=== PATIENT | male | born 1945 | race Caucasian/White ===

== ENCOUNTER → 2020-03-15 13:12 | Outpatient (BNVA) | payer BC, SELFPAY | PROVIDERS: PCP Internal Medicine; Visit Provider Hospitalist | DX: Z76.89 Persons encountering health services in other specified circumstances (principal) ==

== ENCOUNTER 2020-09-06 14:16 | Outpatient (REF) | payer BC, SELFPAY ==
--- NOTE | ~2020-09-06 | XR_ITS ---
EXAMINATION: XR CHEST CLINICAL INFORMATION: COPD. COMPARISON: None TECHNIQUE: 2 views of the chest were obtained. FINDINGS: Subtle nodular opacities overlie the peripheral midlung poole bilaterally, right greater than left. A subtle nodule overlies the left upper lobe measuring 1.8 cm. There is generalized hyperinflation. The heart and mediastinal structures are unremarkable. XR/XR chest 2V IMPRESSION: Generalized hyperinflation consistent with the patient's history of COPD. No acute cardiopulmonary process. Subtle nodularity bilaterally may be associated with the overlying ribs. Given there is no previous study available for comparison, a CT scan of the chest is recommended to rule out nodule/malignancy.
== END 2020-09-06 14:17 | disposition home or self-care (01) ==
LOC: HO.XRAY 14:16
PROVIDERS: PCP Internal Medicine; Visit Provider Hospitalist
DX: J44.9 Chronic obstructive pulmonary disease, unspecified (principal)
CPT/HCPCS: 71046

== ENCOUNTER → 2020-09-18 09:52 | Outpatient (BNVA) | payer BC, SELFPAY | PROVIDERS: PCP Internal Medicine; Visit Provider Hospitalist ==

== ENCOUNTER 2020-10-11 09:35 | Outpatient (REF) | payer MEDICARE, SELFPAY ==
--- NOTE | ~2020-10-11 | CT_ITS ---
EXAMINATION: CT CHEST WITHOUT CONTRAST CLINICAL INFORMATION: Other nonspecific abnormal finding of lung field. COMPARISON: Previous chest x-ray most recent August 2020. TECHNIQUE: Multidetector volumetric CT imaging of the chest was done. Axial MIP volume rendering provided. Sagittal and coronal reformatted images were obtained. This CT examination was performed using dose optimization techniques as appropriate, variously including the following: *Automated exposure control *Adjustment of mA and/or kV according to patient size (this includes techniques or standardized protocols for targeted exams where dose is matched to indication/reason for exam; i.e. extremities or head) *Use of iterative reconstruction technique DLP: 128 mGy-cm FINDINGS: LUNGS: There are bilateral pleural plaques. Some appear partially calcified. There is a 2 x 3.6 cm oval-shaped peripheral or subpleural lesion in the right lower lobe. This is adjacent to the pleural surface and there is pleural calcification. This has a whorled central bronchovascular pattern and probably represents round atelectasis, for example axial image 42 series 4. There is a 2 mm right upper lobe nodule axial image 14 series 4. There is a 2 mm left upper lobe nodule axial image 22 series 4. MEDIASTINUM: There is coronary artery calcification. The mediastinum is otherwise normal. PLEURA: There are bilateral partially calcified pleural plaques. There is focal pleural calcification and pleural thickening adjacent to the posterior medial right lower lobe. There is no pleural effusion. AXILLA: No lymphadenopathy. UPPER ABDOMEN: Unremarkable. OSSEOUS STRUCTURES: There are degenerative changes of the spine. 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 2 x 3.6 cm posterior medial right lower lobe nodule probably representing round atelectasis. Mild coronary artery calcification.
== END 2020-10-11 09:36 | disposition home or self-care (01) ==
LOC: HO.CT 09:35
PROVIDERS: Visit Provider Hospitalist
DX: R91.8 Other nonspecific abnormal finding of lung field (principal); R93.89 Abnormal findings on diagnostic imaging of other specified body structures
CPT/HCPCS: 71250

== ENCOUNTER → 2020-10-16 10:09 | Outpatient (BNVA) | payer MEDICARE, SELFPAY | PROVIDERS: PCP Internal Medicine; Visit Provider Hospitalist | DX: R91.8 Other nonspecific abnormal finding of lung field (principal); R93.89 Abnormal findings on diagnostic imaging of other specified body structures; G47.33 Obstructive sleep apnea (adult) (pediatric); J92.0 Pleural plaque with presence of asbestos; F51.01 Primary insomnia; J41.0 Simple chronic bronchitis; Z99.89 Dependence on other enabling machines and devices; Z79.899 Other long term (current) drug therapy | CPT/HCPCS: 99212 ==

== ENCOUNTER 2020-12-19 09:09 | Outpatient (REF) | payer MEDICARE, SELFPAY ==
--- NOTE | ~2020-12-19 | CT_ITS ---
EXAMINATION: CT CHEST WITHOUT CONTRAST CLINICAL INFORMATION: Followup right lower lobe nodule. COMPARISON: None TECHNIQUE: Multidetector volumetric CT imaging of the chest was done. Axial MIP volume rendering provided. Sagittal and coronal reformatted images were obtained. This CT examination was performed using dose optimization techniques as appropriate, variously including the following: *Automated exposure control *Adjustment of mA and/or kV according to patient size (this includes techniques or standardized protocols for targeted exams where dose is matched to indication/reason for exam; i.e. 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 LUNGS: The lungs are hyperinflated without acute pneumonic consolidation. There is a right lower lobe pleural-based mass with an adjacent dense calcified pleural plaque. The mass measures 3.9 x 2.3 cm on axial image 434/7. Previously it measured 3.6 x 2.0 cm. No additional nodules or mass seen. There is mild scarring and atelectatic changes in the right lower lobe adjacent to this pleural-based nodule. There are small 9 mm and 1.2 cm nodules along the right hemidiaphragm which are stable. They are best visualized on axial image 507/7. MEDIASTINUM: The thyroid lobes are symmetrical and normal. The central trachea and the bronchi widely patent. The heart size and the great vessels are normal caliber. There are coronary artery calcifications. There is no pericardial effusion. No abnormal size mediastinal or hilar lymph nodes seen. PLEURA: There are bilateral calcified pleural plaques, similar to previous study and right diaphragmatic-based 2 nodules. One of these nodules is partially calcified. There is minimal right posterior pleural thickening. AXILLA: No lymphadenopathy. UPPER ABDOMEN: Visualized liver, spleen, pancreas, and bilateral adrenal glands are unremarkable. OSSEOUS STRUCTURES: There is no lytic or sclerotic process. There is mild ventral spondylosis mid thoracic and upper lumbar spine. CT/CT chest wo con IMPRESSION: Minimal increase in the right lower lobe pleural-based mass. There are bilateral diaphragmatic pleural calcifications and nodular focal thickening along the right diaphragm, stable. Mild right posterior pleural thickening is stable, as well. Mild coronary artery calcifications are stable, as well. The lungs are hyperinflated.
== END 2020-12-19 09:10 | disposition home or self-care (01) ==
LOC: HO.CT 09:09
PROVIDERS: Visit Provider Hospitalist
DX: R91.8 Other nonspecific abnormal finding of lung field (principal); J92.0 Pleural plaque with presence of asbestos
CPT/HCPCS: 71250

== ENCOUNTER → 2021-01-16 10:26 | Outpatient (BNVA) | payer MEDICARE, SELFPAY | PROVIDERS: PCP Internal Medicine; Visit Provider Hospitalist | DX: R91.8 Other nonspecific abnormal finding of lung field (principal); G47.33 Obstructive sleep apnea (adult) (pediatric); J92.0 Pleural plaque with presence of asbestos; J41.0 Simple chronic bronchitis; F51.01 Primary insomnia; Z99.89 Dependence on other enabling machines and devices | CPT/HCPCS: 99212 ==

== ENCOUNTER → 2021-01-31 09:24 | Outpatient (BNVA) | payer MEDICARE, SELFPAY | PROVIDERS: PCP Internal Medicine; Visit Provider Surgery | DX: R91.8 Other nonspecific abnormal finding of lung field (principal); J92.0 Pleural plaque with presence of asbestos; Z79.899 Other long term (current) drug therapy | CPT/HCPCS: 99212 ==

== ENCOUNTER 2021-02-11 15:50 | Outpatient (REF) | payer MEDICARE, SELFPAY ==
--- NOTE | 2021-02-11 17:18 | PFT_ITS ---
FLOWS: 1. FEV1 88% of predicted at 3.16 L. 2. FVC 95% of predicted at 4.70 L. 3. FEV1 to FVC ratio of 0.611. 4. Positive bronchodilator response. LUNG VOLUMES: 1. Total lung capacity 99% of predicted at 7.82 L. 2. Residual volume 116% of predicted at 3.25 L. 3. Slow vital capacity 90% of predicted at 4.57 L. 4. Expiratory reserve volume 111% of predicted at 1.66 L. Diffusion capacity is moderately decreased, diffusion capacity adjust to being mildly decreased after correction for alveolar ventilation. IMPRESSION: [id number] obstructive ventilatory defect with positive bronchodilator response. Decreased diffusion capacity suggests emphysema. MD OSCAR Bhatia/MODL / [id number]
== END 2021-02-11 15:51 | disposition home or self-care (01) ==
LOC: HO.RESP 15:50
PROVIDERS: PCP Internal Medicine; Visit Provider Surgery
DX: R91.8 Other nonspecific abnormal finding of lung field (principal)
CPT/HCPCS: 94060; 94727; 94729

== ENCOUNTER 2021-03-25 08:56 | Outpatient (REF) | payer MEDICARE, SELFPAY ==
--- NOTE | ~2021-03-25 | PE_ITS ---
EXAMINATION: Fluorine-18 FDG PET/CT Scan CLINICAL INDICATION: Initial treatment management. Right lower lobe mass. PROCEDURE: 74 minutes following the intravenous administration of 16.2 mCi of fluorine 18 FDG, images from the base of the skull to the mid thighs were obtained using a combined PET/CT scanner with CT scan based attenuation correction. No oral contrast was administered. No intravenous contrast was administered. Transverse, coronal, sagittal, and volume reconstruction projections were obtained. The patient's blood glucose as determined by a finger stick, was 89 mg/dl immediately prior to injection. Total CT exam dose-length product 385.46 mGy-cm * These CT images were obtained using dose optimization techniques as appropriate, variously including the following: Automated exposure control * Adjustment of mA and/or kV according to patient size (this includes techniques or standardized protocols for targeted exams where dose is matched to indication/reason for exam; i.e. extremities or head) * Use of iterative reconstruction technique COMPARISON: No previous PET/CT scan is available for comparison. CT scan of the chest dated 12/19/2020 is available for comparison. FINDINGS: (Slice numbers described in this report are numbered superiorly to inferiorly with slice #1 in the head) NECK AND VISUALIZED HEAD: No foci of abnormal FDG activity are noted. The distribution of FDG activity is physiological. There is no cervical lymphadenopathy. Minimal mucosal thickening in the left maxillary sinus with no associated abnormal FDG activity is noted. THORAX: A posterior medial pleural-based cavitary mass in the right lower lobe shows mildly increased FDG activity, SUVmax 2.7, slice 118/267. On the CT images, this most prominent superior solid portion of this measures 4.0 x 2.7 cm in largest transverse dimensions and approximately 2.4 cm cephalocaudad. This is not appear significantly changed on the CT images from the 12/19/2020 CT scan. There are multiple stable appearing pleural-based plaques bilaterally, these are weakly FDG avid, the largest in the anterolateral aspect of the right upper lobe showing SUVmax 2.7, slice 100/267. This pleural-based and partially calcified focus measures 1.9 x 0.9 cm in largest transverse dimensions. Smaller and also partially calcified plaques are present in the anterolateral aspect of the left upper lobe, more inferiorly and laterally in the left upper lobe and anterolaterally in the right upper lobe. There are no additional foci of abnormal FDG activity present in the chest. There is no mediastinal, supraclavicular, or axillary lymphadenopathy. There is no pleural or pericardial fluid, or pneumothorax. ABDOMEN AND PELVIS: There are no foci of abnormal FDG activity in the abdomen or pelvis. There is mild FDG activity throughout the gastrointestinal tract without a suspicious focal component. There is diverticulosis without evidence of diverticulitis. The hollow viscera are otherwise unremarkable. The prostate gland is enlarged measuring 5.3 cm in largest transverse dimensions. The liver, spleen, gallbladder and kidneys, adrenal glands and pancreas are unremarkable. There is no retroperitoneal, mesenteric, pelvic or inguinal lymphadenopathy. MUSCULOSKELETAL: There are no foci of abnormally increased FDG activity in the osseous structures. There are diffuse degenerative changes in the spine and sacroiliac joints, but no suspicious sclerotic or lytic lesions are visualized. Postsurgical hardware pins are present in the left humeral head, likely from a rotator cuff repair with no associated abnormal FDG activity. VASCULAR: Diffuse vascular calcifications including coronary are noted. PET/PET CT fusion skull to thigh IMPRESSION: 1. Mild FDG activity associated with the pleural-based right lower lobe mass is nonspecific and may be inflammatory or malignant in etiology. Biopsy will likely be necessary to determine the etiology of this, if clinically indicated. 2. Multiple partially calcified pleural plaques are present and these show only weak to mild FDG activity and are not strongly suspicious for malignancy. 3. No additional abnormalities suspicious for metastatic or other malignant lesions are noted. 4. Diffuse vascular calcifications including coronary are noted.
== END 2021-03-25 08:57 | disposition home or self-care (01) ==
LOC: HO.PET 08:56
PROVIDERS: Visit Provider Surgery
DX: Z13.89 Encounter for screening for other disorder (principal)

== ENCOUNTER → 2021-03-28 09:46 | Outpatient (BNVA) | payer MEDICARE, SELFPAY | PROVIDERS: PCP Internal Medicine; Visit Provider Surgery | DX: R91.8 Other nonspecific abnormal finding of lung field (principal); J92.0 Pleural plaque with presence of asbestos; Z79.899 Other long term (current) drug therapy | CPT/HCPCS: 99212 ==

== ENCOUNTER 2021-04-23 12:01 | Day surgery (SDC) | payer MEDICARE, SELFPAY ==
[2021-04-23] VITALS (9 sets, daily range): BP systolic 106–136; BP diastolic 45–61; PULSE 44–50; RESP 16–18; TEMP 36.2–36.4; O2SAT 94–97; BMI 21.8
--- NOTE | ~2021-04-23 | XR_ITS ---
EXAMINATION: XR CHEST CLINICAL INFORMATION: Post right lung biopsy COMPARISON: Previous chest x-ray August 2020 TECHNIQUE: Frontal view of the chest was obtained. FINDINGS: The cardiac and mediastinal contours are stable. Density in the medial right lower lobe adjacent to the spine that was biopsied appears unchanged. There are bilateral smaller nodules likely corresponding to calcified pleural plaques that are stable. The lungs are otherwise clear. There is no pleural effusion or pneumothorax. There are degenerative changes of the spine and scoliosis. There are surgical anchors in the left humeral head. XR/XR chest 1V IMPRESSION: No pneumothorax post right lung biopsy.
--- NOTE | ~2021-04-23 | CT_ITS ---
PROCEDURE: CT GUIDED BIOPSY LUNG CLINICAL INFORMATION: Right lower lobe lung nodule. COMPARISON: Previous chest CT most recent December [address] March 2021 TECHNIQUE: Procedure and risks and benefits including bleeding, infection and pneumothorax were discussed with the patient and informed consent was obtained. The patient was positioned in the right decubitus position. Axial images through the lower chest were performed. The right lower back was prepped and draped in the usual sterile fashion. The skin and soft tissues were anesthetized with 1% lidocaine plain. Using CT guidance and a coaxial system, access to the nodule/mass in the right lower lobe was obtained. Four 20-gauge core biopsies were performed. The patient received Versed 1 mg and fentanyl 50 mcg intravenously during the procedure. Total sedation time was [address] examination was performed using dose optimization techniques as appropriate, variously including the following: *Automated exposure control *Adjustment of mA and/or kV according to patient size (this includes techniques or standardized protocols for targeted exams where dose is matched to indication/reason for exam; i.e. extremities or head) *Use of iterative reconstruction technique DLP: 223 mGy-cm FINDINGS: There is a 2.5 x 3.3 cm peripheral or subpleural medial right lower lobe nodule/mass that was targeted for fine-needle aspiration. There is adjacent pleural thickening and pleural calcification. No pneumothorax postprocedure is seen. CT/CT biopsy lung RT IMPRESSION: CT-guided right lower lobe lung biopsy.
[2021-04-23 12:42] LABS: MANUAL DIFF FLAG NO
[2021-04-23 12:43] LABS: Basophils Percent Auto 0.5 % (0-2); Eosinophils Absolute Auto 0.3 X10*3/uL (0.0-0.4); Eosinophils Percent Auto 5.1 % (0-4); Hematocrit 38.9 % (42.0-52.0); Hemoglobin 12.6 g/dl (14.0-18.0); Imm Gran Abs Auto 0.02 X10*3/uL (0.00-0.03); Imm Gran Pct Auto 0.3 % (0.0-0.4); Lymphocytes Absolute Auto 1.5 X10*3/uL (1.2-4.9); Lymphocytes Percent Auto 22.1 % (20-40); Mean Corpuscular HGB Conc 32.4 g/dl (31.0-36.0); Mean Corpuscular Hemoglobin 31.3 pg (27.0-33.0); Mean Corpuscular Volume 96.8 fL (80.0-98.0); Mean Platelet Volume 9.1 fL (9.4-12.4); Monocytes Absolute Auto 0.5 X10*3/uL (0.1-1.2); Monocytes Percent Auto 7.1 % (2-11); Neutrophils Absolute Auto 4.3 x10*3/uL (2.0-8.3); Neutrophils Percent Auto 64.9 % (45-73); Platelet Count 205 X10*3/uL (160-400); Red Blood Count 4.02 X10*6/uL (4.60-5.80); Red Cell Distribution Width 12.3 % (11.0-16.0); White Blood Count 6.7 X10*3/uL (4.8-10.8)
[2021-04-23 12:49] LABS: Prothrombin Time 11.9 SEC (9.9-13.0)
[2021-04-23 12:51] LABS: Partial Thromboplastin Time 37.6 SEC (24.1-38.0)
[2021-04-23 13:04] LABS: Anion Gap 14 (12-20); Carbon Dioxide 25 mmol/L (22-29); Chloride 108 mmol/L (96-108); Potassium 4.1 mmol/L (3.3-5.1); Sodium 143 mmol/L (135-145)
== END 2021-04-23 17:32 | disposition home or self-care (01) ==
LOC: HO.SSS 12:02
PROVIDERS: Radiology Diagnostic Radiology; PCP Radiology Diagnostic Radiology; Visit Provider Radiology Diagnostic Radiology
DX: R91.8 Other nonspecific abnormal finding of lung field (principal); J92.0 Pleural plaque with presence of asbestos; J84.112 Idiopathic pulmonary fibrosis; J44.9 Chronic obstructive pulmonary disease, unspecified; Z79.899 Other long term (current) drug therapy
CPT/HCPCS: 32408; 36415; 71045; 80051; 85025; 85610; 85730; 88305; 88333; 99152; J2250; J3010

== ENCOUNTER → 2021-05-02 08:49 | Outpatient (BNVA) | payer MEDICARE, SELFPAY | PROVIDERS: PCP Internal Medicine; Visit Provider Surgery | DX: R91.8 Other nonspecific abnormal finding of lung field (principal); J92.0 Pleural plaque with presence of asbestos; Z79.899 Other long term (current) drug therapy | CPT/HCPCS: 99212 ==

== ENCOUNTER → 2021-07-21 10:30 | Outpatient (BNVA) | payer MEDICARE, SELFPAY | PROVIDERS: PCP Internal Medicine; Visit Provider Hospitalist | DX: R91.8 Other nonspecific abnormal finding of lung field (principal); G47.33 Obstructive sleep apnea (adult) (pediatric); J92.0 Pleural plaque with presence of asbestos; F51.01 Primary insomnia; J41.0 Simple chronic bronchitis; Z99.89 Dependence on other enabling machines and devices | CPT/HCPCS: 99212 ==

== ENCOUNTER → 2022-01-20 10:27 | Outpatient (BNVA) | payer MEDICARE, SELFPAY | PROVIDERS: PCP Internal Medicine; Visit Provider Hospitalist | DX: R91.8 Other nonspecific abnormal finding of lung field (principal); J92.0 Pleural plaque with presence of asbestos; J41.0 Simple chronic bronchitis; G47.33 Obstructive sleep apnea (adult) (pediatric); F51.01 Primary insomnia; R93.89 Abnormal findings on diagnostic imaging of other specified body structures; Z79.899 Other long term (current) drug therapy | CPT/HCPCS: 99212 ==

== ENCOUNTER → 2022-07-21 10:06 | Outpatient (BNVA) | payer MEDICARE, SELFPAY | PROVIDERS: Visit Provider Hospitalist | DX: J41.0 Simple chronic bronchitis (principal); J92.0 Pleural plaque with presence of asbestos; R91.8 Other nonspecific abnormal finding of lung field; F51.01 Primary insomnia; Z79.899 Other long term (current) drug therapy | CPT/HCPCS: 99212 ==

== ENCOUNTER 2022-08-04 07:15 | Outpatient (REF) | payer MEDICARE, SELFPAY ==
--- NOTE | ~2022-08-04 | CT_ITS ---
EXAMINATION: CT CHEST WITHOUT CONTRAST CLINICAL INFORMATION: Abnormal lung findings COMPARISON: Chest x-ray 04/23/2021, CT chest 12/19/2020 and PET/CT 03/25/2021. TECHNIQUE: Multidetector volumetric CT imaging of the chest was done. Axial MIP volume rendering provided. Sagittal and coronal reformatted images were obtained. This CT examination was performed using dose optimization techniques as appropriate, variously including the following: *Automated exposure control *Adjustment of mA and/or kV according to patient size (this includes techniques or standardized protocols for targeted exams where dose is matched to indication/reason for exam; i.e. extremities or head) *Use of iterative reconstruction technique DLP: 126 mGy-cm. 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 LUNGS: The lungs are well expanded and clear of acute pneumonic process. There is a right lower lobe pleural-based mass medially measuring 3.7 x 2.2 x 4.3 cm on axial image 43/4 and sagittal image 68/8. There are radiating fibers superiorly and inferiorly on the sagittal view. These are similar to previous study. On previous CT 12/19/2020, the lesion measured 3.5 x 2.37 cm axial image 45/4. There are 2 smaller lesions along the right hemidiaphragm and right lower lobe, likely small calcified pleural plaques and are stable. There are punctate 1 mm nodule left lower lobe axial image 408/5, stable and 1 mm calcified nodules right upper lobe axial image 218/5 and 225/5, stable. No new nodules seen. MEDIASTINUM: Thyroid lobes are symmetrical and normal. The central trachea and the bronchi widely patent. Heart size and great vessels are normal caliber. No abnormal-sized mediastinal mass or lymph nodes seen. CORONARY ARTERY CALCIFICATION: Mild coronary artery calcification seen. PLEURA: There is extensive bilateral calcified pleural plaques and pleural plaques along the diaphragm, stable. AXILLA: No lymphadenopathy. UPPER ABDOMEN: Visualized liver, spleen, pancreas and bilateral adrenal glands are unremarkable. OSSEOUS STRUCTURES: No aggressive lytic or sclerotic process seen. CT/CT chest wo IV con IMPRESSION: Stable right lower lobe mediastinal-based mass with adjacent linear stranding. Other small calcified and noncalcified lung nodules or calcification are stable. Extensive bilateral calcified pleural plaques and noncalcified pleural plaques are also stable. Mild coronary artery calcifications. Hyperinflated lungs. Fleischner guidelines were followed.
== END 2022-08-04 07:16 | disposition home or self-care (01) ==
LOC: HO.CT 07:15
PROVIDERS: Visit Provider Hospitalist
DX: R91.8 Other nonspecific abnormal finding of lung field (principal)
CPT/HCPCS: 71250

== ENCOUNTER 2022-12-25 11:27 | Outpatient (AMB) | payer MEDICARE, SELFPAY ==
--- NOTE | 2022-12-25 11:30 | A.OFFVIS_ITS ---
Intake Vital Signs 12/25/22 11:32 Height 6 ft 1 in Weight 171 lb 15.369 oz BMI 22.7 BP 108/64 Blood Pressure Location Lt brachial Position Sitting Pulse 60 Pulse Source Pulse Oximeter Pulse Oximetry (%) 97 Oxygen Delivery Method Room Air Intake Visit Reasons: Increased shortness of breath, cough prod Time Motion Analyst Required: No Gravel Inspector: Gravel Inspector offered & declined Accompanied by: Self / Same As Patient Allergies No Known Allergies Allergy (Verified 12/25/22 11:36) Medication List - Last Reconciled 12/25/22 by Lilly Limon LPN albuterol sulfate 90 mcg/actuation (ProAir HFA) 2 puffs inhalation Q6H PRN 30 days azelastine intranasal flu vac qv 2020(18yr up)rc(PF) mL IM fluticasone propionate 50 mcg/actuation 2 sprays intranasal DAILY 30 days gabapentin 300 mg PO TID montelukast 10 mg PO DAILY Symbicort 160-4.5 mcg/actuation (budesonide-formoterol) 2 puffs inhalation Q12H 90 days NS trazodone 100 mg PO BEDTIME HPI Increased shortness of breath, cough prod HPI Details Ishan is a pleasant 77 year old male followed for COPD, asbestos plaques and DEUCE. At baseline, he uses symbicort and albuterol MDI with good control. He reports over the last week he has had wheezing, productive cough with increased white mucus production. He denies any chest tightness or chest congestion. He denies any fevers, chills or sick contacts. He notes that he walks two miles every morning and it has been more difficult over the last month. He denies orthopnea or BLE edema. He does report allergy symptoms and is not taking a daily antihistamine or singulair anymore. FORMERLY [facility] Medical History Abnormal chest x-ray Asbestos-induced pleural plaque COPD (chronic obstructive pulmonary disease) Insomnia Lung mass DEUCE (obstructive sleep apnea) Pulmonary nodules Social History (Updated 12/25/22 @ 11:39 by Lilly Limon LPN) Patient Tobacco Use Status: Never used Tobacco Smoked in Last 30 Days: No Review of Systems Const Denies chills, Denies excessive sweating, Denies fever(s), Denies headache(s) and Denies night sweats Eyes Denies dry eyes, Denies irritation and Denies itchy eyes ENT Reports Normal hearing present, Denies headache(s) and Denies sore throat Card Denies chest pain, Denies chest pain at rest, Denies chest pain with activity, Denies claudication, Denies leg edema, Denies dyspnea, Denies orthopnea and Denies paroxysmal nocturnal dyspnea Resp Denies chest congestion, Denies excessive phlegm production, Denies pain on inspiration, Denies pain with cough, Denies dyspnea and Denies stridor Musc Denies myalgias Neuro Reports Normal hearing present and Denies headache(s) Endo Denies excessive sweating Lyle/Lymph Denies lymphadenopathy Aller/Immun Denies itchy eyes and Denies seasonal rhinorrhea Physical Exam Vital Signs: Last Vital Signs Pulse 60 12/25/22 11:32 BP 108/64 12/25/22 11:32 Pulse Ox 97 12/25/22 11:32 Oxygen Delivery Method Room Air 12/25/22 11:32 BMI result Body Mass Index 22.7 Const General: cooperative, healthy appearing, comfortable, no acute distress, well developed and alert Orientation/consciousness: patient oriented x3 Limitations: no limitations HEENT Head: Yes normal to inspection, Yes normocephalic and Yes atraumatic Ears: hearing grossly normal bilaterally and external ears normal Eyes General: appearance normal, both eyes and all related structures Eyelids: Yes eyelids normal Sclerae: sclerae normal EOM: EOMs intact bilaterally Neck Neck: Yes normal visual inspection and Yes no lymphadenopathy Lymphatic: no lymphadenopathy noted Chest Chest palpation & inspection: normal inspection of the chest Resp Effort & Inspection: normal respiratory effort, able to speak in complete sentences, no audible wheezes, no cough, no stridor, not tachypneic, no tripod positioning and no use of accessory muscles Auscultation: clear to auscultation bilaterally Cardio Jugular venous distension: no JVD Rate: regular rate Rhythm: regular rhythm Skin Other: warm, dry General skin exam: no rashes or lesions noted Neuro General: patient oriented x3 Cranial nerves: Yes Normal hearing present Cognition (Neuro): normal cognition Gait exam (Neuro): Normal gait present Extrem General: Yes normal to inspection, Yes capillary refill normal, Yes no clubbing, cyanosis or edema and Yes no pedal edema Psych Appearance: grossly normal and well kempt Speech and movement: Normal speech and movement present and Clear speech present Affect: normal affect Attitude: cooperative Thought process: Normal thought process present Thought content: Normal thought content present Insight: Good insight present (Psych) Judgement: Good judgement present (Psych) Assessment & Plan Assessment & Plan (1) COPD (chronic obstructive pulmonary disease): Code(s): J44.9 - Chronic obstructive pulmonary disease, unspecified Qualifiers: COPD type: chronic bronchitis Chronic bronchitis type: simple Qualified Code(s): J41.0 - Simple chronic bronchitis (2) DEUCE (obstructive sleep apnea): Comment: (using CPAP) Code(s): G47.33 - Obstructive sleep apnea (adult) (pediatric) (3) Asbestos-induced pleural plaque: Comment: (With asbestos plaques and rounded atelectasis) Code(s): J92.0 - Pleural plaque with presence of asbestos Plan Will treat bronchitic symptoms with azithromycin. Encouraged patient to restart singulair and try to remember to take symbicort BID, as he often forgets to take BID. He is aware if symptoms do not improve to call the office. All questions were answered and patient is in agreement of plan. Will follow up with Dr. Beck for regularly scheduled appointment. Medications: New montelukast 10 mg PO DAILY 30 tabs 3RF azithromycin For 250 mg dose pack: take 500 mg today (day 1), then 250 mg for 4 days (days 2-5) PO 6 tabs 0RF Coding Level of Care Code Est Pt Level 3 (68742) Diagnoses COPD (chronic obstructive pulmonary disease) J41.0 COPD type: chronic bronchitis Chronic bronchitis type: simple DEUCE (obstructive sleep apnea) G47.33 Asbestos-induced pleural plaque J92.0
[2022-12-25 11:32] VITALS: BP 108/64; PULSE 60; O2SAT 97; BMI 22.7
== END 2022-12-25 12:53 | disposition home or self-care (01) ==
PROVIDERS: Visit Provider Nurse Practitioner Family
DX: J41.0 Simple chronic bronchitis (principal); G47.33 Obstructive sleep apnea (adult) (pediatric); J92.0 Pleural plaque with presence of asbestos
CPT/HCPCS: 99213

== ENCOUNTER → 2022-12-25 11:27 | Outpatient (BNVA) | payer MEDICARE, SELFPAY | PROVIDERS: Visit Provider Nurse Practitioner Family | DX: J41.0 Simple chronic bronchitis (principal); J92.0 Pleural plaque with presence of asbestos; R91.8 Other nonspecific abnormal finding of lung field; G47.33 Obstructive sleep apnea (adult) (pediatric) | CPT/HCPCS: 99212 ==

== ENCOUNTER 2023-01-12 11:17 | Outpatient (AMB) | payer MEDICARE, SELFPAY ==
--- NOTE | 2023-01-12 11:26 | A.OFFVIS_ITS ---
Intake Vital Signs 01/12/23 11:29 Weight 173 lb 1.006 oz BP 134/64 Blood Pressure Location Lt brachial Position Sitting Pulse 50 Pulse Source Pulse Oximeter Pulse Oximetry (%) 97 Oxygen Delivery Method Room Air Intake Visit Reasons: Sick visit - requested pt test for covid Allergies No Known Allergies Allergy (Verified 01/12/23 11:32) Medication List - Last Reconciled 01/12/23 by Deena Ventura LPN albuterol sulfate 90 mcg/actuation (ProAir HFA) 2 puffs inhalation Q6H PRN 30 days azelastine intranasal azithromycin For 250 mg dose pack: take 500 mg today (day 1), then 250 mg for 4 days (days 2-5) PO flu vac qv 2019(18yr up)rc(PF) mL IM fluticasone propionate 50 mcg/actuation 2 sprays intranasal DAILY 30 days gabapentin 300 mg PO TID montelukast 10 mg PO DAILY Symbicort 160-4.5 mcg/actuation (budesonide-formoterol) 2 puffs inhalation Q12H 90 days NS trazodone 100 mg PO BEDTIME HPI Sick visit - requested pt test for covid HPI Details Ishan is a pleasant 77 year old male followed for COPD, asbestos plaques and DEUCE. He was seen two weeks ago, complaining of one week history of productive cough with increased mucus production and shortness of breath. He was prescribed a zpak with no change in symptoms. He reports increased mucus production with white sputum and increased work of breathing with decreased activity. He also has had a low grade fever along with chills. Denies any sick contacts. He has been using albuterol three times per day with good relief. He has not been using symbicort infrequently as he was unsure if he could use simultaneously. [facility] Medical History Abnormal chest x-ray Asbestos-induced pleural plaque COPD (chronic obstructive pulmonary disease) Insomnia Lung mass DEUCE (obstructive sleep apnea) Pulmonary nodules Social History (Updated 12/25/22 @ 11:39 by Lilly Limon LPN) Patient Tobacco Use Status: Never used Tobacco Review of Systems Const Denies excessive sweating, Denies headache(s) and Denies night sweats Eyes Denies dry eyes, Denies irritation and Denies itchy eyes ENT Reports Normal hearing present, Denies headache(s) and Denies sore throat Card Denies chest pain, Denies chest pain at rest, Denies chest pain with activity, Denies claudication, Denies leg edema, Denies orthopnea and Denies paroxysmal nocturnal dyspnea Resp Denies chest congestion, Denies pain on inspiration, Denies pain with cough and Denies stridor Musc Denies myalgias Neuro Reports Normal hearing present and Denies headache(s) Endo Denies excessive sweating Lyle/Lymph Denies lymphadenopathy Aller/Immun Denies itchy eyes and Denies seasonal rhinorrhea Physical Exam Vital Signs: Last Vital Signs Pulse 50 01/12/23 11:29 BP 134/64 01/12/23 11:29 Pulse Ox 97 01/12/23 11:29 Oxygen Delivery Method Room Air 01/12/23 11:29 Const General: cooperative, healthy appearing, comfortable, no acute distress, well developed and alert Orientation/consciousness: patient oriented x3 Limitations: no limitations HEENT Head: Yes normal to inspection, Yes normocephalic and Yes atraumatic Ears: hearing grossly normal bilaterally and external ears normal Eyes General: appearance normal, both eyes and all related structures Eyelids: Yes eyelids normal Sclerae: sclerae normal EOM: EOMs intact bilaterally Neck Neck: Yes normal visual inspection and Yes no lymphadenopathy Lymphatic: no lymphadenopathy noted Chest Chest palpation & inspection: normal inspection of the chest Resp Effort & Inspection: normal respiratory effort, able to speak in complete sentences, no audible wheezes, no cough, no stridor, not tachypneic, no tripod positioning and no use of accessory muscles Auscultation: clear to auscultation bilaterally Cardio Jugular venous distension: no JVD Rate: regular rate Rhythm: regular rhythm Skin Other: warm, dry General skin exam: no rashes or lesions noted Neuro General: patient oriented x3 Cranial nerves: Yes Normal hearing present Cognition (Neuro): normal cognition Gait exam (Neuro): Normal gait present Extrem General: Yes normal to inspection, Yes capillary refill normal, Yes no clubbing, cyanosis or edema and Yes no pedal edema Psych Appearance: grossly normal and well kempt Speech and movement: Normal speech and movement present and Clear speech present Affect: normal affect Attitude: cooperative Thought process: Normal thought process present Thought content: Normal thought content present Insight: Good insight present (Psych) Judgement: Good judgement present (Psych) Assessment & Plan Assessment & Plan (1) COPD (chronic obstructive pulmonary disease): Code(s): J44.9 - Chronic obstructive pulmonary disease, unspecified Qualifiers: COPD type: chronic bronchitis Chronic bronchitis type: simple Qualified Code(s): J41.0 - Simple chronic bronchitis (2) DEUCE (obstructive sleep apnea): Comment: (using CPAP) Code(s): G47.33 - Obstructive sleep apnea (adult) (pediatric) (3) Asbestos-induced pleural plaque: Comment: (With asbestos plaques and rounded atelectasis) Code(s): J92.0 - Pleural plaque with presence of asbestos Plan Will treat bronchitic symptoms with augmentin, as no improvement with zpak. If no better, will send for CXR and sputum. He is aware if symptoms do not improve to call the office. He noted to be dyspneic with exertion, 6MWT performed and no need for supplemental oxygen at this time. Reviewed importance of maintenance respiratory medications and use of IVETH versus ICS/LABA. Patient noted he was due to his [address] in January that he had to reschedule. Will enter this. All questions were answered and patient is in agreement of plan. Will follow up with Dr. Beck for regularly scheduled appointment in January. Orders: Orders CT chest wo IV con Today J92.0 - Pleural plaque with presence of asbestos, R91.8 - Other nonspecific abnormal finding of lung field Medications: New amoxicillin-pot clavulanate 875-125 mg 1 tab PO Q12H 14 tabs 0RF Coding Level of Care Code Est Pt Level 4 (96865) Diagnoses COPD (chronic obstructive pulmonary disease) J41.0 COPD type: chronic bronchitis Chronic bronchitis type: simple DEUCE (obstructive sleep apnea) G47.33 Asbestos-induced pleural plaque J92.0
[2023-01-12 11:29] VITALS: BP 134/64; PULSE 50; O2SAT 97
== END 2023-01-12 12:23 | disposition home or self-care (01) ==
PROVIDERS: Visit Provider Nurse Practitioner Family
DX: J41.0 Simple chronic bronchitis (principal); G47.33 Obstructive sleep apnea (adult) (pediatric); J92.0 Pleural plaque with presence of asbestos
CPT/HCPCS: 99214

== ENCOUNTER → 2023-01-12 11:17 | Outpatient (BNVA) | payer MEDICARE, SELFPAY | PROVIDERS: Visit Provider Nurse Practitioner Family | DX: J41.0 Simple chronic bronchitis (principal); J92.0 Pleural plaque with presence of asbestos; G47.33 Obstructive sleep apnea (adult) (pediatric) | CPT/HCPCS: 99212 ==

== ENCOUNTER 2023-01-22 09:59 | Outpatient (AMB) | payer MEDICARE, SELFPAY ==
[2023-01-22 10:10] VITALS: BP 128/60; PULSE 56; O2SAT 97; BMI 22.7
--- NOTE | 2023-01-22 10:10 | MHC.OFFVIS ---
Intake Vital Signs 01/22/23 10:10 Height 6 ft 1 in Weight 171 lb 15.369 oz BMI 22.7 BP 128/60 Blood Pressure Location Lt brachial Position Sitting Pulse 56 Pulse Source Pulse Oximeter Pulse Oximetry (%) 97 Oxygen Delivery Method Room Air Intake Visit Reasons: Pulmonary Nodules Manufacturing Planner Required: No Allergies No Known Allergies Allergy (Verified 01/22/23 10:12) HPI HPI Comments History of Present Illness Details The patient is a 77-year-old gentleman known history of COPD and also asbestos exposure. He has been stable on the Symbicort for many years. He states that he had pulmonary function studies done in [place] at some point although I do not have those available at this time. In addition to that he has had imaging studies to assess the asbestos related lung disease, although, I do not have any records at this time. He denies any significant shortness of breath. He does have cough which is intermittent. The cough is nonproductive. He has been thinking singular for sometime in appears to be helpful with this nasal congestion in his airways symptoms. The Symbicort he does take 2 puffs twice a day. He states that this medication is very expensive for him but is helpful. Otherwise patient denies any new exposures and he is staying home because of the COVID-19 infection. 03/15/2020 the patient is here for pulmonary follow-up visit. Overall the patient has been doing well. He continues uses Symbicort with good effect. Has not had to use his rescue inhaler. Denies any exacerbations. In the meantime he continues uses CPAP. The CPAP therapy continues to be affecting beneficial. He does uses CPAP more than 4 hours a night. His sleep study had back at [facility]. Apparently the patient has not gotten any supplies in the last couple years. He needs to be reestablished with another [employer] company. He would like a new mask a believe the F 30 mass would be a good mask for him. He would have to be fitted. The patient is also having some difficulty with sleep. She is using gabapentin and trazodone. He still having hard time sleeping even on these 2 medications. Therefore, is not on reasonable for him to go back to Ambien by itself. If he does not need additional medication he can always add trazodone and hold off on the gabapentin. 09/18/2020 the patient is here for pulmonary follow-up visit. Patient is been complaining of drowsiness and fatigue. He does not have the energy that he did before. He has been progressively getting worse. In meantime he has not been able to get any supplies for her CPAP. He has no longer associated with a [employer] company. The patient has had sleep apnea for many years. The patient benefits from his CPAP therapy. His [place] score is elevated 14/24. Her at this point the patient will need to have a repeat sleep study in order to get active with a [employer] company again. The patient needs to be reestablished on CPAP. In the meantime the patient also underwent a chest x-ray. I personally reviewed it with the patient. He appears to have new nodular densities. These indeed could be concerning. Therefore will request a CT scan of the chest to be done and will review together. 10/16/2020 the patient is here for pulmonary follow-up visit. He continues to have the dyspnea on exertion. [id number] severity. He does continue to walk regularly. He does uses respiratory medications with good effect in good adherence. He still struggling with the daytime drowsiness. However due to the pandemic he has been reluctant to have a sleep study at this time. Once the pandemic settles down he will consider having home sleep study at that point. So for hold off on PAP therapy at this time. He did undergo a CT scan of the chest that was personally reviewed by me regarding abnormal chest x-ray and although his known history of asbestos related lung disease. He has significant pleural plaques consistent with the asbestos but also has a 2 x 3 cm masslike density in the right lower lobe that appears to be consistent with rounded atelectasis. Rounded atelectasis related to asbestos as well. However, malignancy still in differential. He did complain of decrease appetite and some weight loss. We did talk about different alternatives between ordering a PET scan versus repeating the CT scan of the chest in 3 months. We will go ahaed and order the repeat CT chest. But if any worsening symptoms he is to call the office for an earlier evaluation. 01/16/2021 the patient is here for a pulmonary follow-up visit. Overall the patient has been doing about the same. He does complaint of dyspnea on exertion. Does not have much of an appetite. He does try to stay active and walk every morning. We did review his recent CT scan of the chest demonstrating a slight increase in the right lower lobe masslike density in the axial cuts. The cross-sectional cuts appear to be about the same. Appears to be consistent with asbestos related rounded atelectasis. But, in view of the CT scan demonstrating interval increase in size it will be reasonable for him to follow-up with thoracic surgery to further address the question of a malignant process. I did recommend that he get a PET scan but he would like to wait until he sees the thoracic surgeon. In the meantime the patient continues with current respiratory therapy it nasal therapy. 07/21/2021 the patient is here for a pulmonary follow-up visit. Overall he is doing well. Continues to have some dyspnea on exertion. Mild in severity. But has been responding well to his respiratory regimen. The patient also had a PET scan back in April 2021 demonstrating no significant FDG activity in the masslike density. He is closely following up with thoracic surgery. He does have a CT scan scheduled for October 2021 to further address the question. In the meantime he does have daytime drowsiness and he has been having issue with his memory. He has not been using his CPAP regularly. He does not have any new supplies. I did provide him with a new mask, F20i. he is also going to buy new tubing for it and start using it more regularly. The patient will bring machine in for his next visit. It is a [employer] machine. I encouraged him to looking to the recall because he may be able to get a new machine because of the issues at hand. In the meantime the patient continues to do well will continue with current respiratory regimen he will follow-up in the fall. the patient still using trazodone and gabapentin for sleep. Also often on melatonin. He still having hard time sleeping. 01/20/2022 the patient is here for a pulmonary follow-up visit. He still struggling with his chronic fatigue. He has also noticed some issues with his memory. Seems to be getting worse. The patient has not been able to uses CPAP. Feels more comfortable sleeping without it. He has not registered his respiratory is machine with [employer] in order to get a new machine. He has an elevated [place] score of 12/24. The patient also has been using multiple sleep aids without any significant improvement in his sleep quality. He does have a referral to [facility] next week. Therefore I will not make any changes based on that a coming appointment. We did talk about the importance of using CPAP in case he is memory issues and concentration issues are related to his poor sleep quality. In the meantime the patient has not had any further imaging studies for his lung mass and pulmonary nodules. He did have a CT-guided biopsy demonstrating some fibrosis. Although biopsies are not definitive. His last imaging study was a PET scan back in April 2021. He was supposed to follow-up with a CT scan but was concerned about the cost. Therefore I will have him get a chest x-ray least today or whenever he can do it in order to follow-up with this density. Denies any worsening shortness of breath or chest discomfort. 07/21/2022 the patient is here for pulmonary follow-up visit. He is out dyspnea on exertion. [id number] severity. He does walk about 2 miles a day. In addition to that he has episodes of coughing. He has been using the Symbicort with good effect. The patient also complains of nasal congestion. He does not have any nasal therapy. Will provide him with nasal spray. When he got to the office his heart rate was noted to be low in the low 50s when he was sitting down. I reassured him and to compare brief walking his heart rate did go up to about 69-70. The therefore, appears to be normal. He will follow up with his primary care doctor regarding the heart rate anyway. If he develops any dizziness or any lightheadedness he should on seek medical advice. The patient also had a CT scan of the chest last back in 2020. He also followed up with thoracic surgery and he was scheduled to have a CT scan but never had it. Patient had a significant masslike density back in April 2021 and he also underwent a CT-guided biopsy. Therefore, will go ahead and request a repeat CT scan in view of his ongoing symptoms and the fact that he did not get his last CT scan. 01/22/2023 the patient is here for pulmonary follow-up visit. He is complaining of worsening productive cough. Moderate severity. Typically worse in the morning. We did try to get a sputum culture in the office but the patient could not this any sputum. He did take the sputum cup with him to try to get 1 from home. In the meantime his last CT scan of the chest was done back in July 2022. still has the masslike density and also the significant asbestos related pleural plaques. The patient understands that with the asbestos exposure he does have a high risk of cancer. Will plan to repeat the CT scan in July 2023 which be [address] scan. He continues uses respiratory therapy with good response. We will await the results of the sputum culture in order to treat him effectively with antimicrobial therapy if needed. The patient does benefit from a CPT device should an Acapella valve to help him expectorate better as well. He also has a nebulizer which was start using least once a day for better bronchopulmonary hygiene. CPAP therapy has been effective and beneficial. [facility] Medical History Abnormal chest x-ray Asbestos-induced pleural plaque COPD (chronic obstructive pulmonary disease) Insomnia Lung mass DEUCE (obstructive sleep apnea) Pulmonary nodules Social History (Updated 12/25/22 @ 11:39 by Lilly Limon LPN) Patient Tobacco Use Status: Never used Tobacco Review of Systems Const Reports daytime sleepiness, Reports difficulty sleeping, Reports fatigue, Reports lethargy, Denies night sweats and Reports weight loss ENT Denies change in voice, Denies lip swelling, Denies mouth pain, Reports nasal congestion, Reports nasal discharge and Denies tongue swelling Card Denies chest pain and Reports dyspnea on exertion Resp Reports cough and Reports dyspnea on exertion GI Denies abdominal pain Musc Denies no additional complaints Neuro Denies Neuro-related abnormal movements Psych Denies no additional complaints Endo Reports fatigue Lyle/Lymph Denies easy bleeding and Denies lymphadenopathy Aller/Immun Denies lip swelling and Denies tongue swelling Physical Exam Vital Signs: Last Vital Signs Pulse 56 01/22/23 10:10 BP 128/60 01/22/23 10:10 Pulse Ox 97 01/22/23 10:10 Oxygen Delivery Method Room Air 01/22/23 10:10 BMI result Body Mass Index 22.7 Const General: alert Neck Neck: Yes normal visual inspection, Yes full ROM and Yes no lymphadenopathy Chest Chest palpation & inspection: normal inspection of the chest Resp Auscultation: diminished lung sounds Cardio Rate: regular rate Rhythm: regular rhythm Heart sounds: S1 normal heart sound present and S2 normal heart sound present GI Palpation (GI): Soft to palpation and nontender Auscultation: normal bowel sounds Skin General skin exam: rashes and/or lesions noted Results Reviewed Results Reviewed: [address] [address] [address] Scan Report Signed Patient: Ishan Weinstein Jr MR#: [id number] : 1945 Acct:[id number] Age/Sex: 76 / M ADM Date: 08/04/22 Loc: HO.CT Attending Dr: Terrell Beck MD Ordering Physician: Terrell Beck MD Date of Service: 08/04/22 Procedure(s): CT chest wo IV con Accession Number(s): [id number] cc: Terrell Beck MD~ EXAMINATION: CT CHEST WITHOUT CONTRAST CLINICAL INFORMATION: Abnormal lung findings COMPARISON: Chest x-ray 04/23/2021, CT chest 12/19/2020 and PET/CT 03/25/2021. TECHNIQUE: Multidetector volumetric CT imaging of the chest was done. Axial MIP volume rendering provided. Sagittal and coronal reformatted images were obtained. This CT examination was performed using dose optimization techniques as appropriate, variously including the following: *Automated exposure control *Adjustment of mA and/or kV according to patient size (this includes techniques or standardized protocols for targeted exams where dose is matched to indication/reason for exam; i.e. extremities or head) *Use of iterative reconstruction technique DLP: 126 mGy-cm. FINDINGS: UX INTERACTION DESIGNER: The lungs are hyperinflated. LUNGS: The lungs are well expanded and clear of acute pneumonic process. There is a right lower lobe pleural-based mass medially measuring 3.7 x 2.2 x 4.3 cm on axial image 43/4 and sagittal image 68/8. There are radiating fibers superiorly and inferiorly on the sagittal view. These are similar to previous study. On previous CT 12/19/2020, the lesion measured 3.5 x 2.37 cm axial image 45/4. There are 2 smaller lesions along the right hemidiaphragm and right lower lobe, likely small calcified pleural plaques and are stable. There are punctate 1 mm nodule left lower lobe axial image 408/5, stable and 1 mm calcified nodules right upper lobe axial image 218/5 and 225/5, stable. No new nodules seen. MEDIASTINUM: Thyroid lobes are symmetrical and normal. The central trachea and the bronchi widely patent. Heart size and great vessels are normal caliber. No abnormal-sized mediastinal mass or lymph nodes seen. CORONARY ARTERY CALCIFICATION: Mild coronary artery calcification seen. PLEURA: There is extensive bilateral calcified pleural plaques and pleural plaques along the diaphragm, stable. AXILLA: No lymphadenopathy. UPPER ABDOMEN: Visualized liver, spleen, pancreas and bilateral adrenal glands are unremarkable. OSSEOUS STRUCTURES: No aggressive lytic or sclerotic process seen. CT/CT chest wo IV con IMPRESSION: Stable right lower lobe mediastinal-based mass with adjacent linear stranding. Other small calcified and noncalcified lung nodules or calcification are stable. Extensive bilateral calcified pleural plaques and noncalcified pleural plaques are also stable. Mild coronary artery calcifications. Hyperinflated lungs. Fleischner guidelines were followed. Dictated By: Wes García MD Signed By: <Electronically signed by Wes García MD in OV> 08/14/22 1021 DD/ 0800 TD/TT: Ad Writer: [facility] Assessment & Plan Assessment & Plan (1) Pulmonary nodules: Code(s): R91.8 - Other nonspecific abnormal finding of lung field (2) Asbestos-induced pleural plaque: Comment: (With asbestos plaques and rounded atelectasis) Code(s): J92.0 - Pleural plaque with presence of asbestos (3) Insomnia: Code(s): G47.00 - Insomnia, unspecified Qualifiers: Insomnia type: primary Qualified Code(s): F51.01 - Primary insomnia (4) COPD (chronic obstructive pulmonary disease): Code(s): J44.9 - Chronic obstructive pulmonary disease, unspecified Qualifiers: COPD type: chronic bronchitis Chronic bronchitis type: simple Qualified Code(s): J41.0 - Simple chronic bronchitis (5) Lung mass: Comment: (3.9 x 2.3 cm RLL pleural-based mass) Code(s): R91.8 - Other nonspecific abnormal finding of lung field Plan Continue Symbicort IVETH as needed Continue singulair Gabapentin to 600 mg at night continue trazodone at night CT chest to assess pulmonary mass 07/2023 CPT with acapella valve sputum culture Follow-up in 6 months Orders: Orders CT chest wo IV con 6 Months R91.8 - Other nonspecific abnormal finding of lung field Sputum Cult + Gram stain 01/22/23 J44.9 - Chronic obstructive pulmonary disease, unspecified Coding Level of Care Code Est Pt Level 4 (74420) Diagnoses Pulmonary nodules R91.8 Asbestos-induced pleural plaque J92.0 Primary insomnia F51.01 Insomnia type: primary Simple chronic bronchitis J41.0 COPD type: chronic bronchitis Chronic bronchitis type: simple Lung mass R91.8 Time Spent (min) 18
== END 2023-01-22 10:48 | disposition home or self-care (01) ==
PROVIDERS: Visit Provider Hospitalist
DX: R91.8 Other nonspecific abnormal finding of lung field (principal); J92.0 Pleural plaque with presence of asbestos; F51.01 Primary insomnia; J41.0 Simple chronic bronchitis
CPT/HCPCS: 99214

== ENCOUNTER → 2023-01-22 09:59 | Outpatient (BNVA) | payer MEDICARE, SELFPAY | PROVIDERS: Visit Provider Hospitalist | DX: J41.0 Simple chronic bronchitis (principal); R91.8 Other nonspecific abnormal finding of lung field; J92.0 Pleural plaque with presence of asbestos; F51.01 Primary insomnia; Z79.899 Other long term (current) drug therapy | CPT/HCPCS: 99212 ==

== ENCOUNTER 2023-02-11 07:35 | Outpatient (REF) | payer MEDICARE, SELFPAY ==
--- NOTE | ~2023-02-11 | CT_ITS ---
EXAMINATION: CT CHEST WITHOUT CONTRAST CLINICAL INFORMATION: Follow-up right lower lobe mass COMPARISON: 08/04/2022 and 12/19/2020 as well as SPECT-CT from 03/25/2021 TECHNIQUE: Multidetector volumetric CT imaging of the chest was done. Axial MIP volume rendering provided. Sagittal and coronal reformatted images were obtained. This CT examination was performed using dose optimization techniques as appropriate, variously including the following: *Automated exposure control *Adjustment of mA and/or kV according to patient size (this includes techniques or standardized protocols for targeted exams where dose is matched to indication/reason for exam; i.e. 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 Findings most likely consistent with chronic round atelectasis. There are multiple pleural-based plaques stable since previous studies some of them associated with coarse calcifications as well. There are no lung nodules MEDIASTINUM: The mediastinum is normal. CORONARY ARTERY CALCIFICATION: There are moderate intensity coronary artery calcifications seen. PLEURA: No evidence of pleural effusion but pleural based calcification and multiple pleural-based plaques present. AXILLA: No lymphadenopathy. UPPER ABDOMEN: Unremarkable. OSSEOUS STRUCTURES: Unremarkable. CT/CT chest wo IV con IMPRESSION: 1. Stable right lower lobe pleural-based mass most likely round atelectasis. 2. Multiple pleural-based calcified plaques, sequela of asbestos exposure. 3. Coronary artery calcifications. Fleischner guidelines were followed.
== END 2023-02-11 07:36 | disposition home or self-care (01) ==
LOC: HO.CT 07:35
PROVIDERS: Visit Provider Nurse Practitioner Family
DX: R91.8 Other nonspecific abnormal finding of lung field (principal); J92.0 Pleural plaque with presence of asbestos
CPT/HCPCS: 71250

== ENCOUNTER 2023-03-19 11:45 | Outpatient (REF) | payer MEDICARE, SELFPAY ==
--- NOTE | 2023-03-19 12:39 | PFT_ITS ---
FLOWS: 1. FEV1 104% of predicted at 2.89 L. 2. FVC 98% of predicted at 4.67 L. 3. FEV1 to FVC ratio of 0.62. 4. No bronchodilator response. LUNG VOLUMES: 1. Total lung capacity 88% of predicted at 7.06 L. 2. Residual volume 73% of predicted at 2.28 L. 3. Slow vital capacity 101% of predicted at 4.78 L. 4. Expiratory reserve volume 105% of predicted at 1.58 L. 5. Diffusion capacity is mildly decreased, diffusion capacity corrects to normal after adjustment for alveolar ventilation. IMPRESSION: Mild obstructive ventilatory defect with no bronchodilator response. Decreased diffusion capacity suggest emphysema. MD OSCAR Bhatia/MODL / [id number]
== END 2023-03-19 11:46 | disposition home or self-care (01) ==
LOC: HO.RESP 11:45
PROVIDERS: PCP Nurse Practitioner Primary Care; Visit Provider Hospitalist
DX: J41.0 Simple chronic bronchitis (principal)
CPT/HCPCS: 94010; 94727

== ENCOUNTER → 2023-03-19 12:39 | Outpatient (BNV) | payer MEDICARE, SELFPAY | PROVIDERS: PCP Nurse Practitioner Primary Care; Visit Provider Internal Medicine Pulmonary Disease | DX: J44.9 Chronic obstructive pulmonary disease, unspecified (principal) | CPT/HCPCS: 94060; 94727; 94729 ==

== ENCOUNTER 2023-03-25 10:54 | Outpatient (AMB) | payer MEDICARE, SELFPAY ==
[2023-03-25 11:03] VITALS: BP 128/60; PULSE 58; O2SAT 96; BMI 23.1
--- NOTE | 2023-03-25 11:03 | A.OFFVIS_ITS ---
Intake Vital Signs 03/25/23 11:03 Height 6 ft 1 in Weight 175 lb BMI 23.1 BP 128/60 Blood Pressure Location Lt brachial Position Sitting Pulse 58 Pulse Source Pulse Oximeter Pulse Oximetry (%) 96 Oxygen Delivery Method Room Air Intake Visit Reasons: Pulmonary Nodules Oncology Rn Required: No Allergies No Known Allergies Allergy (Verified 03/25/23 11:05) HPI HPI Comments History of Present Illness Details The patient is a 77-year-old gentleman known history of COPD and also asbestos exposure. He has been stable on the Symbicort for many years. He states that he had pulmonary function studies done in [place] at some point although I do not have those available at this time. In addition to that he has had imaging studies to assess the asbestos related lung disease, although, I do not have any records at this time. He denies any significant shortness of breath. He does have cough which is intermittent. The cough is nonproductive. He has been thinking singular for sometime in appears to be helpful with this nasal congestion in his airways symptoms. The Symbicort he does take 2 puffs twice a day. He states that this medication is very expensive for him but is helpful. Otherwise patient denies any new exposures and he is staying home because of the COVID-19 infection. 03/15/2020 the patient is here for pulrosy shaikh follow-up visit. Overall the patient has been doing well. He continues uses Symbicort with good effect. Has not had to use his rescue inhaler. Denies any exacerbations. In the meantime he continues uses CPAP. The CPAP therapy continues to be affecting beneficial. He does uses CPAP more than 4 hours a night. His sleep study had back at [facility]. Apparently the patient has not gotten any supplies in the last couple years. He needs to be reestablished with another tabulate company. He would like a new mask a believe the F 30 mass would be a good mask for him. He would have to be fitted. The patient is also having some difficulty with sleep. She is using gabapentin and trazodone. He still having hard time sleeping even on these 2 medications. Therefore, is not on reasonable for him to go back to Ambien by itself. If he does not need additional medication he can always add trazodone and hold off on the gabapentin. 09/18/2020 the patient is here for pulmon beatrice follow-up visit. Patient is been complaining of drowsiness and fatigue. He does not have the energy that he did before. He has been progressively getting worse. In meantime he has not been able to get any supplies for her CPAP. He has no longer associated with a tabulate company. The patient has had sleep apnea for many years. The patient benefits from his CPAP therapy. His Copenhagen score is elevated 14/24. Her at this point the patient will need to have a repeat sleep study in order to get active with a tabulate company again. The patient needs to be reestablished on CPAP. In the meantime the patient also underwent a chest x-ray. I personally reviewed it with the patient. He appears to have new nodular densities. These indeed could be concerning. Therefore will request a CT scan of the chest to be done and will review together. 10/16/2020 the patient is here for puldemond barron follow-up visit. He continues to have the dyspnea on exertion. Fjng-hr-jveeceio severity. He does continue to walk regularly. He does uses respiratory medications with good effect in good adherence. He still struggling with the daytime drowsiness. However due to the pandemic he has been reluctant to have a sleep study at this time. Once the pandemic settles down he will consider having home sleep study at that point. So for hold off on PAP therapy at this time. He did undergo a CT scan of the chest that was personally reviewed by me regarding abnormal chest x-ray and al though his known history of asbestos related lung disease. He has significant pleural plaques consistent with the asbestos but also has a 2 x 3 cm masslike density in the right lower lobe that appears to be consistent with rounded atelectasis. Rounded atelectasis related to asbestos as well. However, malignancy still in differential. He did complain of decrease appetite and some weight loss. We did talk about different alternatives between ordering a PET scan versus repeating the CT scan of the chest in 3 months. We will go ahaed and order the repeat CT chest. But if any worsening symptoms he is to call the office for an earlier evaluation. 01/16/2021 the [facility] Overall the patient has been doing about the same. He does complaint of dyspnea on exertion. Does not have much of an appetite. He does try to stay active and walk every morning. We did review his recent CT scan of the chest demonstrating a slight increase in the right lower lobe masslike density in the axial cuts. The cross-sectional cuts appear to be about the same. Appears to be consistent with asbestos related rounded atelectasis. But, in view of the CT scan de monstrating interval increase in size it will be reasonable for him to follow-up with thoracic surgery to further address the question of a malignant process. I did recommend that he get a PET scan but he would like to wait until he sees the thoracic surgeon. In the meantime the patient continues with current respiratory therapy it nasal therapy. 07/21/2021 the patient is here for a pulrosy shaikh follow-up visit. Overall he is doing well. Continues to have some dyspnea on exertion. Mild in severity. But has been responding well to his respiratory regimen. The patient also had a PET scan back in April 2021 demonstrating no significant FDG activity in the masslike density. He is closely following up with thoracic surgery. He does have a CT scan scheduled for October 2021 to further address the question. In the meantime he does have daytime drowsiness and he has been having issue with his memory. He has not been using his CPAP regularly. He does not have any new supplies. I did provide him with a new mask, F20i. he is also going to buy new tubing for it and start using it more regularly. The patient will bring machine in for his next visit. It is a [employer] machine. I encouraged him to looking to the recall because he may be able to get a new machine because of the issues at hand. In the meantime the patient continues to do well will continue with current respiratory regimen he will follow-up in the fall. the patient still using trazodone and gabapentin for sleep. Also often on melatonin. He still having hard time sleeping. 01/20/2022 the patient is here for a pulrosy shaikh follow-up visit. He still struggling with his chronic fatigue. He has also noticed some issues with his memory. Seems to be getting worse. The patient has not been able to uses CPAP. Feels more comfortable sleeping without it. He has not registered his respiratory is machine with [employer] in order to get a new machine. He has an elevated Copenhagen score of 12/24. The patient also has been using multiple sleep aids without any significant improvement in his sleep quality. He does have a referral to [facility] next week. Therefore I will not make any changes based on that a coming appointment. We did talk about the importance of using CPAP in case he is memory issues and concentration issues are related to his poor sleep quality. In the meantime the patient has not had any further imaging studies for his lung mass and pulmonary nodules. He did have a CT-guided biopsy demonstrating some fibrosis. Although biopsies are not definitive. His last imaging study was a PET scan back in April 2021. He was supposed to follow-up with a CT scan but was concerned about the cost. Therefore I will have him get a chest x-ray least today or whenever he can do it in order to follow-up with this density. Denies any worsening shortness of breath or chest discomfort. 07/21/2022 the patient is here for pulmona ry follow-up visit. He is out dyspnea on exertion. Hbcr-rp-pcohlrym severity. He does walk about 2 miles a day. In addition to that he has episodes of coughing. He has been using the Symbicort with good effect. The patient also complains of nasal congestion. He does not have any nasal therapy. Will provide him with nasal spray. When he got to the office his heart rate was noted to be low in the low 50s when he was sitting down. I reassured him and to compare brief walking his heart rate did go up to about 69-70. The therefore, appears to be normal. He will follow up with his primary care doctor regarding the heart rate anyway. If he develops any dizziness or any lightheadedness he should on seek medical advice. The patient also had a CT scan of the chest last back in 2020. He also followed up with thoracic surgery and he was scheduled to have a CT scan but never had it. Patient had a significant masslike density back in April 2021 and he also underwent a CT-guided biopsy. Therefore, will go ahead and request a repeat CT scan in view of his ongoing symptoms and the fact that he did not get his last CT scan. 01/22/2023 the patient is here for pulmona ry follow-up visit. He is complaining of worsening productive cough. Moderate severity. Typically worse in the morning. We did try to get a sputum culture in the office but the patient could not this any sputum. He did take the sputum cup with him to try to get 1 from home. In the meantime his last CT scan of the chest was done back in July 2022. still has the masslike density and also the significant asbestos related pleural plaques. The patient understands that with the asbestos exposure he does have a high risk of cancer. Will plan to repeat the CT scan in July 2023 which be [address] scan. He continues uses respiratory therapy with good response. We will await the results of the sputum culture in order to treat him effectively with antimicrobial therapy if needed. The patient does benefit from a CPT device should an Acapella valve to help him expectorate better as well. He also has a nebulizer which was start using least once a day for better bronchopulmonary hygiene. CPAP therapy has been effective and beneficial. 03/25/2023 the patient is here for pulmon beatrice follow-up visit. Overall the patient has been feeling better. Although still gets some shortness of breath. Especially when he gets anxious he feels like his breathing is worse. Moderate severity. He has been taking the Symbicort. He did undergo pulmonary function studies which we personally reviewing appears that he still has a mild obstruction consistent moderate mild COPD. Therefore, be reasonable to optimize his therapy to switch him from Symbicort to Trelegy at this time. I am hopeful that this works better for him. Otherwise he will have a repeat CT scan sometime in the springtime regarding the masslike density that he has likely rounded atelectasis. The patient also get a CPT with the Acapella valve we did go over the instructions in how to use it properly and he will try to use it at least once a day. [facility] Medical History Abnormal chest x-ray Asbestos-induced pleural plaque COPD (chronic obstructive pulmonary disease) Insomnia Lung mass DEUCE (obstructive sleep apnea) Pulmonary nodules Social History (Updated 12/25/22 @ 11:39 by Lilly Limon LPN) Patient Tobacco Use Status: Never used Tobacco Review of Systems Const Reports daytime sleepiness, Reports difficulty sleeping, Reports fatigue, Reports lethargy, Denies night sweats and Reports weight loss ENT Denies change in voice, Denies lip swelling, Denies mouth pain, Reports nasal congestion, Reports nasal discharge and Denies tongue swelling Card Denies chest pain and Reports dyspnea on exertion Resp Reports cough and Reports dyspnea on exertion GI Denies abdominal pain Musc Denies no additional complaints Neuro Denies Neuro-related abnormal movements Psych Denies no additional complaints Endo Reports fatigue Lyle/Lymph Denies easy bleeding and Denies lymphadenopathy Aller/Immun Denies lip swelling and Denies tongue swelling Physical Exam Vital Signs: Last Vital Signs Pulse 58 03/25/23 11:03 BP 128/60 03/25/23 11:03 Pulse Ox 96 03/25/23 11:03 Oxygen Delivery Method Room Air 03/25/23 11:03 BMI result Body Mass Index 23.1 Const General: alert Neck Neck: Yes normal visual inspection, Yes full ROM and Yes no lymphadenopathy Chest Chest palpation & inspection: normal inspection of the chest Resp Effort & Inspection: prolonged expiratory phase Auscultation: diminished lung sounds Cardio Rate: regular rate Rhythm: regular rhythm Heart sounds: S1 normal heart sound present and S2 normal heart sound present GI Palpation (GI): Soft to palpation and nontender Auscultation: normal bowel sounds Skin General skin exam: rashes and/or lesions noted Assessment & Plan Assessment & Plan (1) Pulmonary nodules: Code(s): R91.8 - Other nonspecific abnormal finding of lung field (2) Asbestos-induced pleural plaque: Comment: (With asbestos plaques and rounded atelectasis) Code(s): J92.0 - Pleural plaque with presence of asbestos (3) Insomnia: Code(s): G47.00 - Insomnia, unspecified Qualifiers: Insomnia type: primary Qualified Code(s): F51.01 - Primary insomnia (4) COPD (chronic obstructive pulmonary disease): Code(s): J44.9 - Chronic obstructive pulmonary disease, unspecified Qualifiers: COPD type: chronic bronchitis Chronic bronchitis type: simple Qualified Code(s): J41.0 - Simple chronic bronchitis (5) Lung mass: Comment: (3.9 x 2.3 cm RLL pleural-based mass) Code(s): R91.8 - Other nonspecific abnormal finding of lung field Plan stop Symbicort start Trelegy IVETH as needed Continue singulair Gabapentin to 600 mg at night continue trazodone at night CT chest to assess pulmonary mass 07/2023 CPT with acapella valve sputum culture Follow-up in 6 months Medications: New bonheudcibq-avybsuztx-hybxezwr 100-62.5-25 mcg (Trelegy Ellipta) 1 inh inhalation DAILY 30 days 60 ea 11RF J44.9 - Chronic obstructive pulmonary disease, unspecified Coding Level of Care Code Est Pt Level 4 (50359) Diagnoses Pulmonary nodules R91.8 Asbestos-induced pleural plaque J92.0 Primary insomnia F51.01 Insomnia type: primary Simple chronic bronchitis J41.0 COPD type: chronic bronchitis Chronic bronchitis type: simple Lung mass R91.8 Time Spent (min) 16
== END 2023-03-25 11:28 | disposition home or self-care (01) ==
PROVIDERS: PCP Nurse Practitioner Primary Care; Visit Provider Hospitalist
DX: R91.8 Other nonspecific abnormal finding of lung field (principal); J92.0 Pleural plaque with presence of asbestos; F51.01 Primary insomnia; J41.0 Simple chronic bronchitis
CPT/HCPCS: 99214

== ENCOUNTER → 2023-03-25 10:54 | Outpatient (BNVA) | payer MEDICARE, SELFPAY | PROVIDERS: PCP Nurse Practitioner Primary Care; Visit Provider Hospitalist | DX: R91.8 Other nonspecific abnormal finding of lung field (principal); J92.0 Pleural plaque with presence of asbestos; F51.01 Primary insomnia; J41.0 Simple chronic bronchitis | CPT/HCPCS: 99212 ==

== ENCOUNTER 2023-09-09 07:30 | Outpatient (REF) | payer MEDICARE, SELFPAY ==
--- NOTE | ~2023-09-09 | CT_ITS ---
EXAMINATION: CT CHEST WITHOUT CONTRAST CLINICAL INFORMATION: Follow-up round atelectasis COMPARISON: 02/11/2023 TECHNIQUE: Multidetector volumetric CT imaging of the chest was done. Axial MIP volume rendering provided. Sagittal and coronal reformatted images were obtained. This CT examination was performed using dose optimization techniques as appropriate, variously including the following: *Automated exposure control *Adjustment of mA and/or kV according to patient size (this includes techniques or standardized protocols for targeted exams where dose is matched to indication/reason for exam; i.e. 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 There are no lung nodules. Atelectasis. MEDIASTINUM: The mediastinum is normal. CORONARY ARTERY CALCIFICATION: Moderate intensity coronary artery calcifications PLEURA: Pleural base calcifications and plaques as described but no pleural effusions seen. AXILLA: No lymphadenopathy. UPPER ABDOMEN: Unremarkable. OSSEOUS STRUCTURES: Unremarkable. CT/CT chest wo IV con IMPRESSION: Stable pleural base calcified and noncalcified plaques and rounded atelectasis in the right lower lobe. Calcified plaques due to asbestos exposure No new lesions Fleischner guidelines were followed.
== END 2023-09-09 07:31 | disposition home or self-care (01) ==
LOC: HO.CT 07:30
PROVIDERS: PCP Nurse Practitioner Primary Care; Visit Provider Nurse Practitioner Family
DX: R91.8 Other nonspecific abnormal finding of lung field (principal)
CPT/HCPCS: 71250

== ENCOUNTER 2023-09-17 13:18 | Outpatient (AMB) | payer MEDICARE, SELFPAY ==
[2023-09-17 13:31] VITALS: BP 136/60; PULSE 56; O2SAT 96; BMI 23.1
--- NOTE | 2023-09-17 13:31 | A.OFFVIS_ITS ---
Vital Signs 09/17/23 13:31 Height 6 ft 1 in Weight 175 lb BMI 23.1 BP 136/60 Blood Pressure Location Lt brachial Position Sitting Pulse 56 Pulse Source Pulse Oximeter Pulse Oximetry (%) 96 Oxygen Delivery Method Room Air Intake Visit Reasons: Pulmonary Nodules Medical Office Technician Required: No Allergies No Known Allergies Allergy (Verified 09/17/23 13:33) HPI Comments Details: The patient is a 78-year-old gentleman known history of COPD and also asbestos exposure. He has been stable on the Symbicort for many years. He states that he had pulmonary function studies done in [place] at some point although I do not have those available at this time. In addition to that he has had imaging studies to assess the asbestos related lung disease, although, I do not have any records at this time. He denies any significant shortness of breath. He does have cough which is intermittent. The cough is nonproductive. He has been thinking singular for sometime in appears to be helpful with this nasal congestion in his airways symptoms. The Symbicort he does take 2 puffs twice a day. He states that this medication is very expensive for him but is helpful. Otherwise patient denies any new exposures and he is staying home because of the COVID-19 infection. 07/21/2021 the patient is here for a pulmonary follow-up visit. Overall he is doing well. Continues to have some dyspnea on exertion. Mild in severity. But has been responding well to his respiratory regimen. The patient also had a PET scan back in April 2021 demonstrating no significant FDG activity in the masslike density. He is closely following up with thoracic surgery. He does have a CT scan scheduled for October 2021 to further address the question. In the meantime he does have daytime drowsiness and he has been having issue with his memory. He has not been using his CPAP regularly. He does not have any new supplies. I did provide him with a new mask, F20i. he is also going to buy new tubing for it and start using it more regularly. The patient will bring machine in for his next visit. It is a Respironics machine. I encouraged him to looking to the recall because he may be able to get a new machine because of the issues at hand. In the meantime the patient continues to do well will continue with current respiratory regimen he will follow-up in the fall. the patient still using trazodone and gabapentin for sleep. Also often on melatonin. He still having hard time sleeping. 01/20/2022 the patient is here for a pulmonary follow-up visit. He still struggling with his chronic fatigue. He has also noticed some issues with his memory. Seems to be getting worse. The patient has not been able to uses CPAP. Feels more comfortable sleeping without it. He has not registered his respiratory is machine with [email or web address] in order to get a new machine. He has an elevated [place] score of 12/24. The patient also has been using multiple sleep aids without any significant improvement in his sleep quality. He does have a referral to [facility] next week. Therefore I will not make any changes based on that a coming appointment. We did talk about the importance of using CPAP in case he is memory issues and concentration issues are related to his poor sleep quality. In the meantime the patient has not had any further imaging studies for his lung mass and pulmonary nodules. He did have a CT-guided biopsy demonstrating some fibrosis. Although biopsies are not definitive. His last imaging study was a PET scan back in April 2021. He was supposed to follow-up with a CT scan but was concerned about the cost. Therefore I will have him get a chest x-ray least today or whenever he can do it in order to follow-up with this density. Denies any worsening shortness of breath or chest discomfort. 07/21/2022 the patient is here for pulmonary follow-up visit. He is out dyspnea on exertion. Lyit-nt-eamfqlsa severity. He does walk about 2 miles a day. In addition to that he has episodes of coughing. He has been using the Symbicort with good effect. The patient also complains of nasal congestion. He does not have any nasal therapy. Will provide him with nasal spray. When he got to the office his heart rate was noted to be low in the low 50s when he was sitting down. I reassured him and to compare brief walking his heart rate did go up to about 69-70. The therefore, appears to be normal. He will follow up with his primary care doctor regarding the heart rate anyway. If he develops any dizziness or any lightheadedness he should on seek medical advice. The patient also had a CT scan of the chest last back in 2020. He also followed up with thoracic surgery and he was scheduled to have a CT scan but never had it. Patient had a significant masslike density back in April 2021 and he also underwent a CT-guided biopsy. Therefore, will go ahead and request a repeat CT scan in view of his ongoing symptoms and the fact that he did not get his last CT scan. 01/22/2023 the patient is here for pulmonary follow-up visit. He is complaining of worsening productive cough. Moderate severity. Typically worse in the morning. We did try to get a sputum culture in the office but the patient could not this any sputum. He did take the sputum cup with him to try to get 1 from home. In the meantime his last CT scan of the chest was done back in July 2022. still has the masslike density and also the significant asbestos related pleural plaques. The patient understands that with the asbestos exposure he does have a high risk of cancer. Will plan to repeat the CT scan in July 2023 which be [address] scan. He continues uses respiratory therapy with good response. We will await the results of the sputum culture in order to treat him effectively with antimicrobial therapy if needed. The patient does benefit from a CPT device should an Acapella valve to help him expectorate better as well. He also has a nebulizer which was start using least once a day for better bronchopulmonary hygiene. CPAP therapy has been effective and beneficial. 03/25/2023 the patient is here for pulmonary follow-up visit. Overall the patient has been feeling better. Although still gets some shortness of breath. Especially when he gets anxious he feels like his breathing is worse. Moderate severity. He has been taking the Symbicort. He did undergo pulmonary function studies which we personally reviewing appears that he still has a mild obstruction consistent moderate mild COPD. Therefore, be reasonable to optimize his therapy to switch him from Symbicort to Trelegy at this time. I am hopeful that this works better for him. Otherwise he will have a repeat CT scan sometime in the springtime regarding the masslike density that he has likely rounded atelectasis. The patient also get a CPT with the Acapella valve we did go over the instructions in how to use it properly and he will try to use it at least once a day. 09/17/2023 the patient is here for pulmonary follow-up visit. The patient overall has been doing okay. Continues to have dyspnea on exertion. Msfa-lw-qmeexlal severity. He has been using the Symbicort. However, he did bead picker the prescription for Trelegy. Once he runs out the Symbicort will try the Trelegy. If the Trelegy ends up being too expensive or does not work for him he will call and also some back to a HFA formulation. The patient did have a CT scan of the chest that was personally by me. I did review the images with the patient. His masslike density is stable has not changed in several years and is consistent with rounded atelectasis. His other pulmonary nodules are stable. The patient also has significant asbestos related plaques. No significant changes. Will talk about additional imaging studies when he returns in 8 months. If the patient develops any worsening symptoms prior to that he will call. The meantime he does continue to use the sleep aids with good effect. [facility] Medical History Abnormal chest x-ray Asbestos-induced pleural plaque COPD (chronic obstructive pulmonary disease) Insomnia Lung mass DEUCE (obstructive sleep apnea) Pulmonary nodules Social History (Updated 12/25/22 @ 11:39 by Lilly Limon LPN) Patient Tobacco Use Status: Never used Tobacco Review of Systems Const Reports daytime sleepiness, Reports difficulty sleeping, Reports fatigue, Reports lethargy, Denies night sweats and Reports weight loss ENT Denies change in voice, Denies lip swelling, Denies mouth pain, Reports nasal congestion, Reports nasal discharge and Denies tongue swelling Card Denies chest pain and Reports dyspnea on exertion Resp Reports cough and Reports dyspnea on exertion GI Denies abdominal pain Musc Denies no additional complaints Neuro Denies Neuro-related abnormal movements Psych Denies no additional complaints Endo Reports fatigue Lyle/Lymph Denies easy bleeding and Denies lymphadenopathy Aller/Immun Denies lip swelling and Denies tongue swelling Physical Exam Vital Signs: Last Vital Signs Pulse 56 09/17/23 13:31 BP 136/60 09/17/23 13:31 Pulse Ox 96 09/17/23 13:31 Oxygen Delivery Method Room Air 09/17/23 13:31 BMI result Body Mass Index 23.1 Const General: alert Neck Neck: Yes normal visual inspection, Yes full ROM and Yes no lymphadenopathy Chest Chest palpation & inspection: normal inspection of the chest Resp Effort & Inspection: prolonged expiratory phase Auscultation: diminished lung sounds Cardio Rate: regular rate Rhythm: regular rhythm Heart sounds: S1 normal heart sound present and S2 normal heart sound present GI Palpation (GI): Soft to palpation and nontender Auscultation: normal bowel sounds Skin General skin exam: rashes and/or lesions noted Results Reviewed Results Reviewed: [address] [address] [address] Scan Report Signed Patient: Ishan Weinstein Jr MR#: [id number] : 1945 Acct:[id number] Age/Sex: 78 / M ADM Date: 09/09/23 Loc: HO.CT Attending Dr: Tahira Galvan NP Ordering Physician: Terrell Beck MD Date of Service: 09/09/23 Procedure(s): CT chest wo IV con Accession Number(s): [id number] cc: Terrell Beck MD; Kate Toribio [facility]~ EXAMINATION: CT CHEST WITHOUT CONTRAST CLINICAL INFORMATION: Follow-up round atelectasis COMPARISON: 02/11/2023 TECHNIQUE: Multidetector volumetric CT imaging of the chest was done. Axial MIP volume rendering provided. Sagittal and coronal reformatted images were obtained. This CT examination was performed using dose optimization techniques as appropriate, variously including the following: *Automated exposure control *Adjustment of mA and/or kV according to patient size (this includes techniques or standardized protocols for targeted exams where dose is matched to indication/reason for exam; i.e. extremities or head) *Use of iterative reconstruction technique DLP: 137 mGy-cm FINDINGS: RN CALL CENTER: Unremarkable LUNGS: Lungs are well-expanded with numerous stable pleural base calcified and noncalcified plaques in the right lower lobe pleural base rounded mass density with the appearance of round 3.6 x 2.4 cm. There are no lung nodules. Atelectasis. MEDIASTINUM: The mediastinum is normal. CORONARY ARTERY CALCIFICATION: Moderate intensity coronary artery calcifications PLEURA: Pleural base calcifications and plaques as described but no pleural effusions seen. AXILLA: No lymphadenopathy. UPPER ABDOMEN: Unremarkable. OSSEOUS STRUCTURES: Unremarkable. CT/CT chest wo IV con IMPRESSION: Stable pleural base calcified and noncalcified plaques and rounded atelectasis in the right lower lobe. Calcified plaques due to asbestos exposure No new lesions Fleischner guidelines were followed. 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 Protection Officer: Assessment & Plan Assessment & Plan (1) Pulmonary nodules: Code(s): R91.8 - Other nonspecific abnormal finding of lung field Category: Medical (2) Asbestos-induced pleural plaque: Comment: (With asbestos plaques and rounded atelectasis) Code(s): J92.0 - Pleural plaque with presence of asbestos Category: Medical (3) Insomnia: Code(s): G47.00 - Insomnia, unspecified Category: Medical Qualifiers: Insomnia type: primary Qualified Code(s): F51.01 - Primary insomnia (4) COPD (chronic obstructive pulmonary disease): Code(s): J44.9 - Chronic obstructive pulmonary disease, unspecified Category: Medical Qualifiers: COPD type: chronic bronchitis Chronic bronchitis type: simple Qualified Code(s): J41.0 - Simple chronic bronchitis (5) Lung mass: Comment: (3.9 x 2.3 cm RLL pleural-based mass) Code(s): R91.8 - Other nonspecific abnormal finding of lung field Category: Medical Plan stop Symbicort start Trelegy IVETH as needed Continue singulair Gabapentin to 600 mg at night continue trazodone at night CPT with acapella valve Follow-up in 8 months Coding Level of Care Code Est Pt Level 4 (79373) Diagnoses Pulmonary nodules R91.8 Asbestos-induced pleural plaque J92.0 Primary insomnia F51.01 Insomnia type: primary Simple chronic bronchitis J41.0 COPD type: chronic bronchitis Chronic bronchitis type: simple Lung mass R91.8 Time Spent (min) 17
== END 2023-09-17 13:46 | disposition home or self-care (01) ==
PROVIDERS: PCP Nurse Practitioner Primary Care; Visit Provider Hospitalist
DX: R91.8 Other nonspecific abnormal finding of lung field (principal); J92.0 Pleural plaque with presence of asbestos; F51.01 Primary insomnia; J41.0 Simple chronic bronchitis
CPT/HCPCS: 99214

== ENCOUNTER → 2023-09-17 13:18 | Outpatient (BNVA) | payer MEDICARE, SELFPAY | PROVIDERS: PCP Nurse Practitioner Primary Care; Visit Provider Hospitalist | DX: R91.8 Other nonspecific abnormal finding of lung field (principal); J41.0 Simple chronic bronchitis; J92.0 Pleural plaque with presence of asbestos; F51.01 Primary insomnia; Z79.899 Other long term (current) drug therapy | CPT/HCPCS: 99212 ==

== ENCOUNTER 2024-03-01 13:38 | Outpatient (REF) | payer MEDICARE, SELFPAY ==
[2024-03-01 16:55] LABS: TSH reflex Free T4 1.55 uIU/mL (0.32-4.0)
[2024-03-01 17:04] LABS: Folate 12.1 ng/mL (> or = 4.0); Vitamin B12 270 pg/mL (200-900)
[2024-03-03 17:04] LABS: Homocysteine 9.2 umol/L (<11.4)
[2024-03-05 06:40] LABS: Methylmalonic Acid 286 nmol/L (69-390)
== END 2024-03-01 13:39 | disposition home or self-care (01) ==
LOC: HO.LAB 13:38
PROVIDERS: Visit Provider Psychiatry & Neurology Neurology
DX: G31.84 Mild cognitive impairment of uncertain or unknown etiology (principal)
CPT/HCPCS: 36415; 82607; 82746; 83090; 83921; 84443

== ENCOUNTER 2024-04-06 12:58 | Outpatient (AMB) | payer MEDICARE, SELFPAY ==
--- NOTE | 2024-04-06 13:04 | A.OFFVIS_ITS ---
Vital Signs 04/06/24 13:05 Height 6 ft 1 in Weight 180 lb 12.465 oz BMI 23.8 BP 112/58 L Blood Pressure Location Lt brachial Position Sitting Pulse 55 Pulse Source Pulse Oximeter Pulse Oximetry (%) 97 Oxygen Delivery Method Room Air Intake Visit Reasons: Pulmonary Nodules Allergies No Known Allergies Allergy (Verified 04/06/24 13:08) HPI Comments Details: The patient is a 78-year-old gentleman known history of COPD and also asbestos exposure. He has been stable on the Symbicort for many years. He states that he had pulmonary function studies done in [place] at some point although I do not have those available at this time. In addition to that he has had imaging studies to assess the asbestos related lung disease, although, I do not have any records at this time. He denies any significant shortness of breath. He does have cough which is intermittent. The cough is nonproductive. He has been thinking singular for sometime in appears to be helpful with this nasal congestion in his airways symptoms. The Symbicort he does take 2 puffs twice a day. He states that this medication is very expensive for him but is helpful. Otherwise patient denies any new exposures and he is staying home because of the COVID-19 infection. 07/21/2021 the patient is here for a pulmonary follow-up visit. Overall he is doing well. Continues to have some dyspnea on exertion. Mild in severity. But has been responding well to his respiratory regimen. The patient also had a PET scan back in April 2021 demonstrating no significant FDG activity in the masslike density. He is closely following up with thoracic surgery. He does have a CT scan scheduled for October 2021 to further address the question. In the meantime he does have daytime drowsiness and he has been having issue with his memory. He has not been using his CPAP regularly. He does not have any new supplies. I did provide him with a new mask, F20i. he is also going to buy new tubing for it and start using it more regularly. The patient will bring machine in for his next visit. It is a Respironics machine. I encouraged him to looking to the recall because he may be able to get a new machine because of the issues at hand. In the meantime the patient continues to do well will continue with current respiratory regimen he will follow-up in the fall. the patient still using trazodone and gabapentin for sleep. Also often on melatonin. He still having hard time sleeping. 01/20/2022 the patient is here for a pulmonary follow-up visit. He still struggling with his chronic fatigue. He has also noticed some issues with his memory. Seems to be getting worse. The patient has not been able to uses CPAP. Feels more comfortable sleeping without it. He has not registered his respiratory is machine with [employer] in order to get a new machine. He has an elevated [place] score of 12/24. The patient also has been using multiple sleep aids without any significant improvement in his sleep quality. He does have a referral to [facility] next week. Therefore I will not make any changes based on that a coming appointment. We did talk about the importance of using CPAP in case he is memory issues and concentration issues are related to his poor sleep quality. In the meantime the patient has not had any further imaging studies for his lung mass and pulmonary nodules. He did have a CT-guided biopsy demonstrating some fibrosis. Although biopsies are not definitive. His last imaging study was a PET scan back in April 2021. He was supposed to follow-up with a CT scan but was concerned about the cost. Therefore I will have him get a chest x-ray least today or whenever he can do it in order to follow-up with this density. Denies any worsening shortness of breath or chest discomfort. 07/21/2022 the patient is here for pulmonary follow-up visit. He is out dyspnea on exertion. Nvcf-zz-vokvnjod severity. He does walk about 2 miles a day. In addition to that he has episodes of coughing. He has been using the Symbicort with good effect. The patient also complains of nasal congestion. He does not have any nasal therapy. Will provide him with nasal spray. When he got to the office his heart rate was noted to be low in the low 50s when he was sitting down. I reassured him and to compare brief walking his heart rate did go up to about 69-70. The therefore, appears to be normal. He will follow up with his primary care doctor regarding the heart rate anyway. If he develops any dizziness or any lightheadedness he should on seek medical advice. The patient also had a CT scan of the chest last back in 2020. He also followed up with thoracic surgery and he was scheduled to have a CT scan but never had it. Patient had a significant masslike density back in April 2021 and he also underwent a CT-guided biopsy. Therefore, will go ahead and request a repeat CT scan in view of his ongoing symptoms and the fact that he did not get his last CT scan. 01/22/2023 the patient is here for pulmonary follow-up visit. He is complaining of worsening productive cough. Moderate severity. Typically worse in the morning. We did try to get a sputum culture in the office but the patient could not this any sputum. He did take the sputum cup with him to try to get 1 from home. In the meantime his last CT scan of the chest was done back in July 2022. still has the masslike density and also the significant asbestos related pleural plaques. The patient understands that with the asbestos exposure he does have a high risk of cancer. Will plan to repeat the CT scan in July 2023 which be [address] scan. He continues uses respiratory therapy with good response. We will await the results of the sputum culture in order to treat him effectively with antimicrobial therapy if needed. The patient does benefit from a CPT device should an Acapella valve to help him expectorate better as well. He also has a nebulizer which was start using least once a day for better bronchopulmonary hygiene. CPAP therapy has been effective and beneficial. 03/25/2023 the patient is here for pulmonary follow-up visit. Overall the patient has been feeling better. Although still gets some shortness of breath. Especially when he gets anxious he feels like his breathing is worse. Moderate severity. He has been taking the Symbicort. He did undergo pulmonary function studies which we personally reviewing appears that he still has a mild obstr uction consistent moderate mild COPD. Therefore, be reasonable to optimize his therapy to switch him from Symbicort to Trelegy at this time. I am hopeful that this works better for him. Otherwise he will have a repeat CT scan sometime in the springtime regarding the masslike density that he has likely rounded atelectasis. The patient also get a CPT with the Acapella valve we did go over the instructions in how to use it properly and he will try to use it at least once a day. 09/17/2023 the patient is here for pulmonary follow-up visit. The patient overall has been doing okay. Continues to have dyspnea on exertion. Guec-ck-qbcguriw severity. He has been using the Symbicort. 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 Once he runs out the Symbicort will try the Trelegy. If the Trelegy ends up being too expensive or does not work for him he will call and also some back to a HFA formulation. The patient did have a CT scan of the chest that was personally by me. I did review the images with the patient. His masslike density is stable has not changed in several years and is consistent with rounded atelectasis. His other pulmonary nodules are stable. The patient also has significant asbestos related plaques. No significant changes. Will talk about additional imaging studies when he returns in 8 months. If the patient develops any worsening symptoms prior to that he will call. The meantime he does continue to use the sleep aids with good effect. 04/06/2024 the patient is here for a pulmonary follow-up visit. Overall the patient is doing well. Continues on the Trelegy inhaler with good effect. Has not had to use his rescue inhaler often. He continues with his other respiratory medication with good effect. We did look at his last CT scan of the chest back in 10/04/2023 demonstrating stable masslike density likely rounded atelectasis and significant asbestos disease. Since it has been stable now for many years will go ahead and just ask for an x-ray just for his follow-up visit see if we can follow those for now. If however he develops any worsening shortness of breath cough or chest pain he is to call so we can we review things earlier. [facility] Medical History Abnormal chest x-ray Asbestos-induced pleural plaque COPD (chronic obstructive pulmonary disease) Insomnia Lung mass DEUCE (obstructive sleep apnea) Pulmonary nodules Social History Patient Tobacco Use Status: Never used Tobacco Review of Systems Const Reports daytime sleepiness, Reports difficulty sleeping, Reports fatigue, Reports lethargy, Denies night sweats and Reports weight loss ENT Denies change in voice, Denies lip swelling, Denies mouth pain, Reports nasal congestion, Reports nasal discharge and Denies tongue swelling Card Denies chest pain and Reports dyspnea on exertion Resp Reports cough and Reports dyspnea on exertion GI Denies abdominal pain Musc Denies no additional complaints Neuro Denies Neuro-related abnormal movements Psych Denies no additional complaints Endo Reports fatigue Lyle/Lymph Denies easy bleeding and Denies lymphadenopathy Aller/Immun Denies lip swelling and Denies tongue swelling Physical Exam Vital Signs: Last Vital Signs Pulse 55 04/06/24 13:05 BP 112/58 L 04/06/24 13:05 Pulse Ox 97 04/06/24 13:05 Oxygen Delivery Method Room Air 04/06/24 13:05 BMI result Body Mass Index 23.8 Const General: alert Neck Neck: Yes normal visual inspection, Yes full ROM and Yes no lymphadenopathy Chest Chest palpation & inspection: normal inspection of the chest Resp Effort & Inspection: prolonged expiratory phase Auscultation: diminished lung sounds Cardio Rate: regular rate Rhythm: regular rhythm Heart sounds: S1 normal heart sound present and S2 normal heart sound present GI Palpation (GI): Soft to palpation and nontender Auscultation: normal bowel sounds Skin General skin exam: rashes and/or lesions noted Assessment & Plan Assessment & Plan (1) Pulmonary nodules: Code(s): R91.8 - Other nonspecific abnormal finding of lung field Category: Medical (2) Asbestos-induced pleural plaque: Comment: (With asbestos plaques and rounded atelectasis) Code(s): J92.0 - Pleural plaque with presence of asbestos Category: Medical (3) Insomnia: Code(s): G47.00 - Insomnia, unspecified Category: Medical Qualifiers: Insomnia type: primary Qualified Code(s): F51.01 - Primary insomnia (4) COPD (chronic obstructive pulmonary disease): Code(s): J44.9 - Chronic obstructive pulmonary disease, unspecified Category: Medical Qualifiers: COPD type: chronic bronchitis Chronic bronchitis type: simple Qualified Code(s): J41.0 - Simple chronic bronchitis (5) Lung mass: Comment: (3.9 x 2.3 cm RLL pleural-based mass) Code(s): R91.8 - Other nonspecific abnormal finding of lung field Category: Medical Plan Trelegy IVETH as needed Continue singulair Gabapentin to 600 mg at night continue trazodone at night CPT with acapella valve CXR Follow-up in 8 months Orders: Orders XR chest 2V Today R91.8 - Other nonspecific abnormal finding of lung field Medications: Changed From albuterol sulfate 90 mcg/actuation (ProAir HFA) 2 puffs inhalation Q6H 30 days PRN 8.5 grams 11RF shortness of breath or wheezing To albuterol sulfate 90 mcg/actuation 2 puffs inhalation Q6H PRN 8.5 grams 11RF shortness of breath or wheezing 30 days Refilled fluticasone propionate 50 mcg/actuation 2 sprays intranasal DAILY 15.8 mL 11RF 30 days J31.0 - Chronic rhinitis qkorcgammjw-vyoeiepri-ltmxbzrm 100-62.5-25 mcg (Trelegy Ellipta) 1 inh inhalation DAILY 60 ea 11RF 30 days J44.9 - Chronic obstructive pulmonary disease, unspecified Coding Level of Care Code Est Pt Level 4 (71732) Complex EM visit Add On G2211 Diagnoses Pulmonary nodules R91.8 Asbestos-induced pleural plaque J92.0 Primary insomnia F51.01 Insomnia type: primary Simple chronic bronchitis J41.0 COPD type: chronic bronchitis Chronic bronchitis type: simple Lung mass R91.8 Time Spent (min) 17
[2024-04-06 13:05] VITALS: BP 112/58; PULSE 55; O2SAT 97; BMI 23.8
== END 2024-04-06 13:39 | disposition home or self-care (01) ==
PROVIDERS: PCP Nurse Practitioner Primary Care; Visit Provider Hospitalist
DX: R91.8 Other nonspecific abnormal finding of lung field (principal); J92.0 Pleural plaque with presence of asbestos; F51.01 Primary insomnia; J41.0 Simple chronic bronchitis
CPT/HCPCS: 99214; G2211

== ENCOUNTER → 2024-04-06 12:58 | Outpatient (BNVA) | payer MEDICARE, SELFPAY | PROVIDERS: PCP Nurse Practitioner Primary Care; Visit Provider Hospitalist | DX: R91.8 Other nonspecific abnormal finding of lung field (principal); J92.0 Pleural plaque with presence of asbestos; J41.0 Simple chronic bronchitis; F51.01 Primary insomnia | CPT/HCPCS: 99212 ==